=== PATIENT | male | born 1930 | race Caucasian/White ===

== ENCOUNTER 2018-04-14 15:37 | Inpatient (IN) | payer MEDICARE, OTHER ==
[~2018-04-14] VITALS: Ht 177.8 cm; Wt 72.6 kg
--- NOTE | ~2018-04-14 | PN ---
PATIENT:NGOZI COMBS MEDICAL RECORD: [id number] LOCATION:[facility] ADMISSION DATE: 04/14/18 PROGRESS NOTE DATE OF SERVICE: 04/27/2018 SUBJECTIVE: The patient's case was discussed with staff. He has no new complaint. OBJECTIVE: The patient is in good behavioral control with limited insight about his condition. He tolerates his medicines well. ASSESSMENT: No change in diagnoses. PLAN: Current medicines have been reviewed and will be maintained. He is going to be transitioned out of the hospital tomorrow. His daughter and son-in-law are going to take him to [place] and arrangements have been made for him to go into a jail close to the daughter. TRANSINT:[id number] Voice Confirmation ID: [id number] DOCUMENT ID: [id number] JAYSHREE SANTANA MD at 1233 CC: [id number] DICTATION DATE: 04/27/18 1240 ANESTHESIOLOGIST AND CRITICAL CARE: 04/27/18 1314 ADM IN [id number] [place] [address]
--- NOTE | ~2018-04-14 | PN ---
PATIENT:NGOZI COMBS MEDICAL RECORD: [id number] LOCATION:[facility] ADMISSION DATE: 04/14/18 PROGRESS NOTE DATE OF SERVICE: 04/17/2018 SUBJECTIVE: The patient's case was discussed with staff. He has no new complaint. OBJECTIVE: The patient denies intent to harm himself or others. He is quite confused. He is not eating very adequately. ASSESSMENT: No change in diagnoses. PLAN: The patient will be placed on Megace to assist with appetite stimulation. His long-term prognosis is guarded. Supportive and educational interventions were made. It is my understanding that his daughter is wanting him to come live near her in [place]. TRANSINT:[id number] Voice Confirmation ID: [id number] DOCUMENT ID: [id number] JAYSHREE SANTANA MD at 1142 CC: [id number] DICTATION DATE: 04/17/18 1155 TRUCKMAN: 04/17/18 1207 ADM IN [id number] [place] [address]
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
--- NOTE | ~2018-04-14 | PN ---
PATIENT:NGOZI COMBS MEDICAL RECORD: [id number] LOCATION:[facility]112 ADMISSION DATE: 04/14/18 PROGRESS NOTE DATE OF SERVICE: 04/26/2018 SUBJECTIVE: The patient's case was discussed with staff. He has no new complaint. OBJECTIVE: The patient is in good behavioral control with limited insight about his condition. He does tolerate his medicines well. ASSESSMENT: No change in diagnoses. PLAN: I anticipate the patient can be transitioned out of the hospital soon. He is going to go with his daughter to [place] and we have been in contact with a long term there and they are going to accept him for care. TRANSINT:[id number] Voice Confirmation ID: [id number] DOCUMENT ID: [id number] JAYSHREE SANTANA MD at 1217 CC: [id number] DICTATION DATE: 04/26/18 1137 AUTO PARTS COUNTER PERSON: 04/26/18 1325 ADM IN [facility] [address] [place] [address]
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
--- NOTE | ~2018-04-14 | PN ---
PATIENT:NGOZI COMBS MEDICAL RECORD: [id number] LOCATION:[facility] Irizarry112 ADMISSION DATE: 04/14/18 PROGRESS NOTE DATE OF SERVICE: 04/25/2018 SUBJECTIVE: The patient's case was discussed with staff. He has no new complaint. OBJECTIVE: The patient slept well last night. He is also eating reasonably well. He is not completely oriented and he has been told he is going to go live with his daughter in [place] and he is fine with this. ASSESSMENT: No change in diagnoses. PLAN: The patient will be given Namenda at a slightly higher dose. His long-term prognosis is guarded. I anticipate he can be transitioned out of the hospital soon. TRANSINT:[id number] Voice Confirmation ID: [id number] DOCUMENT ID: [id number] JAYSHREE SANTANA MD at 0858 CC: [id number] DICTATION DATE: 04/25/18 1135 PTA: 04/25/18 1233 ADM IN [place] [id number] [place] [address]
--- NOTE | ~2018-04-14 | PN ---
PATIENT:NGOZI COMBS MEDICAL RECORD: [id number] LOCATION:[facility] Irizarry112 ADMISSION DATE: 04/14/18 PROGRESS NOTE DATE OF SERVICE: 04/21/2018 SUBJECTIVE: The patient's case was discussed with staff. He has no new complaint. OBJECTIVE: The patient denies intent to harm himself or others. He is clearly quite confused. He is oriented to person. He is confused about the time and circumstances, and he does know the state he is in, but does not understand that he is in [place] or in the hospital. ASSESSMENT: No change in diagnoses. This patient clearly requires 62-vwpl-x-day supervision. He will be returning to [place] with his daughter when we are ready to discharge him. His prognosis is poor. TRANSINT:[id number] Voice Confirmation ID: [id number] DOCUMENT ID: [id number] JAYSHREE SANTANA MD at 0924 CC: [id number] DICTATION DATE: 04/21/18 1106 RED HAT LINUX ADMINISTRATOR: 04/21/18 1155 ADM IN [id number] [place] [address]
--- NOTE | ~2018-04-14 | PN ---
PATIENT:NGOZI COMBS MEDICAL RECORD: [id number] LOCATION:[facility] I[facility]arry112 ADMISSION DATE: 04/14/18 PROGRESS NOTE DATE OF SERVICE: 04/18/2018 SUBJECTIVE: The patient's case was discussed with staff. He has no new complaint. OBJECTIVE: The patient is severely impaired cognitively. He has been started on Megace to address this. He has not been behaviorally out of control. His symptoms are primarily related to an advanced dementia. He has been started on Namenda for this condition. ASSESSMENT: No change in diagnoses. PLAN: Current medicines have been reviewed and will be maintained. His long-term prognosis is guarded. TRANSINT:[id number] Voice Confirmation ID: [id number] DOCUMENT ID: [id number] JAYSHREE SANTANA MD at 1018 CC: [id number] DICTATION DATE: 04/18/18 1240 BUSINESS SEGMENT MANAGER: 04/18/18 1415 ADM IN [address] [place] [address]
--- NOTE | ~2018-04-14 | PN ---
PATIENT:NGOZI COMBS MEDICAL RECORD: [id number] LOCATION:[facility] I[facility]ry112 ADMISSION DATE: 04/14/18 PROGRESS NOTE DATE OF SERVICE: 04/16/2018 SUBJECTIVE: The patient's case was discussed with staff. He has no new complaint. OBJECTIVE: The patient is severely impaired cognitively. He is only oriented to person and place. He was agitated last night, required p.r.n. medication. ASSESSMENT: No change in diagnoses. PLAN: The patient will be started on Namenda at a dose of 2.5 mg twice daily. He will be monitored for clinical changes associated with its use. His long-term prognosis is guarded. TRANSINT:[id number] Voice Confirmation ID: [id number] DOCUMENT ID: [id number] JAYSHREE SANTANA MD at 1147 CC: [id number] DICTATION DATE: 04/16/18 1615 AGENT TICKETING GATE: 04/17/18 0029 ADM IN [id number] [place] [address]
--- NOTE | ~2018-04-14 | PN ---
PATIENT:NGOZI COMBS MEDICAL RECORD: [id number] LOCATION:[facility] Irizarry112 ADMISSION DATE: 04/14/18 PROGRESS NOTE DATE OF SERVICE: 04/24/2018 SUBJECTIVE: The patient's case was discussed with staff. He has no new complaint. OBJECTIVE: The patient denies intent to harm himself or others. He is in good behavioral control, but his appetite is poor. ASSESSMENT: No change in diagnoses. PLAN: Current medicines have been reviewed and will be maintained. His long-term prognosis is guarded. I anticipate that if this level of improvement continues, he can reasonably be transitioned out of the hospital in a few days. TRANSINT:[id number] Voice Confirmation ID: [id number] DOCUMENT ID: [id number] JAYSHREE SANTANA MD at 1128 CC: [id number] DICTATION DATE: 04/24/18 1518 ACCELERATOR OPERATOR: 04/24/18 1646 ADM IN [address] [id number] [place] [address]
--- NOTE | ~2018-04-14 | PN ---
PATIENT:NGOZI COMBS MEDICAL RECORD: [id number] LOCATION:[facility] Irizarry112 ADMISSION DATE: 04/14/18 PROGRESS NOTE DATE OF SERVICE: 04/20/2018 SUBJECTIVE: The patient's case was discussed with staff. He has no new complaint. OBJECTIVE: The patient is severely impaired cognitively. He has very limited insight about his situation and asks the same questions repeatedly. He does have a normal TSH and I am satisfied with the dose of Synthroid that he is taking. He is also receiving Megace to stimulate his appetite and indeed the appetite was a little better yesterday. ASSESSMENT: No change in diagnoses. PLAN: The patient has been started on Namenda at a dose of 2.5 mg twice daily. I am going to go ahead and increase that medication to 5 mg twice daily. His long-term prognosis is guarded. TRANSINT:[id number] Voice Confirmation ID: [id number] DOCUMENT ID: [id number] JAYSHREE SANTANA MD at 1101 CC: [id number] DICTATION DATE: 04/20/18 1438 LEASING ASSISTANT: 04/20/18 2125 ADM IN [id number] [place] [address]
--- NOTE | ~2018-04-14 | PN ---
PATIENT:NGOZI COMBS MEDICAL RECORD: [id number] LOCATION:[facility] Irizarry112 ADMISSION DATE: 04/14/18 PROGRESS NOTE DATE OF SERVICE: 04/22/2018 SUBJECTIVE: The patient's case was discussed with staff. He has no new complaint. OBJECTIVE: The patient denies intent to harm himself or others. He is quite confused today. He thinks he is in a hotel and has lost his wallet. When trying to explain that is not the case, he becomes frustrated and angry. ASSESSMENT: No change in diagnoses. PLAN: Current medicines have been reviewed and will be maintained. Long-term prognosis is guarded. TRANSINT:[id number] Voice Confirmation ID: [id number] DOCUMENT ID: [id number] JAYSHREE SANTANA MD at 1555 CC: [id number] DICTATION DATE: 04/22/18 0951 LIVESTOCK NUTRITION TERRITORY MANAGER: 04/22/18 1045 ADM IN [address] [place] [address]
--- NOTE | ~2018-04-14 | PN ---
PATIENT:NGOZI COMBS MEDICAL RECORD: [id number] LOCATION:[facility]ar[facility]112 ADMISSION DATE: 04/14/18 PROGRESS NOTE DATE OF SERVICE: 04/28/2018 SUBJECTIVE: The patient's case was discussed with staff. He has no new complaint. OBJECTIVE: The patient is confused, but not agitated. His daughter is going to drive him to [place] today. He has no suicidal thoughts. He is not aggressive, and his daughter has been given a few tablets of Ativan to assist with the transport. ASSESSMENT: No change in diagnoses. PLAN: The patient will have followup in [place]. Arrangements have been made for him to present to and a retirement there and they are going to try and get him there as quickly as they think it is practical for them to do so. TRANSINT:[id number] Voice Confirmation ID: [id number] DOCUMENT ID: [id number] JAYSHREE SANTANA MD at 1130 CC: [id number] DICTATION DATE: 04/28/18 1242 CENTRIFUGAL CASTING MACHINE OPERATOR: 04/28/18 1721 DIS IN 04/28/18 [facility] [address] [place] [address]
[2018-04-14] MEDS ORDERED: MECLIZINE HCL25 MG (16:13)
[2018-04-14] MEDS ORDERED: LIPITOR20 MG PO (16:13)
[2018-04-14] MEDS ORDERED: FLOMAX0.4 MG PO (16:13)
[2018-04-14] MEDS ORDERED: PROTONIX40 MG PO (16:13)
[2018-04-14] MEDS ORDERED: SOLARAZE100 GM (16:13)
[2018-04-14] MEDS ORDERED: SYNTHROID125 MCG (16:14)
[2018-04-14 16:49] LABS: APPEARANCE CLEAR (CLEAR); BILIRUBIN NEGATIVE (NEGATIVE); COLOR YELLOW (YELLOW); GLUCOSE NEGATIVE (NEGATIVE); KETONE NEGATIVE (NEGATIVE); NITRITE NEGATIVE (NEGATIVE); PROTEIN NEGATIVE (NEGATIVE); UROBILINOGEN NORMAL (NORMAL)
[2018-04-14 17:04] LABS: BASOPHILS 0.4 % (0-2); EOSINOPHILS 2.8 % (0-7); HEMATOCRIT 42.1 % (42.0-54.0); HEMOGLOBIN 13.8 g/dL (13.5-17.5); IMMATURE GRANULOCYTES 0.4 % (0-5); LYMPHOCYTES 30.4 % (15-50); MCH 33.3 pg (26.0-34.0); MCHC 32.8 g/dL (31.0-37.0); MCV 101.7 fL (80.0-100.0); MEAN PLATELET VOLUME 10.6 fL (7.4-10.4); MONOCYTES 11.6 % (2-11); NEUTROPHILS 54.4 % (40-80); PLATELET COUNT 240 10x3/uL (130-400); RBC 4.14 10x6/uL (4.20-6.10); RDW 14.3 % (11.5-14.5); WBC 7.1 10x3/uL (4.8-10.8)
[2018-04-14 17:18] LABS: ALBUMIN 3.9 g/dL (3.4-5.0); ANION GAP 15.2 mmol/L (8-16); BILIRUBIN - TOTAL 1.22 mg/dL (0.2-1.3); CALCIUM 8.6 mg/dL (8.5-10.1); CARBON DIOXIDE 23.8 mmol/L (21.0-32.0); CREATININE - SERUM 1.1 mg/dL (0.6-1.3); PROTEIN - SERUM 7.8 g/dL (6.4-8.2)
[2018-04-14 17:27] LABS: THYROID STIMULATING HORMONE 2.82 uIU/mL (0.36-3.74)
[2018-04-14 18:17] LABS: UDS - AMPHET NEGATIVE QUAL (NEGATIVE); UDS - BARB NEGATIVE QUAL (NEGATIVE); UDS - BENZO NEGATIVE QUAL (NEGATIVE); UDS - COCAINE NEGATIVE QUAL (NEGATIVE); UDS - OPIATE NEGATIVE QUAL (NEGATIVE); UDS - PCP NEGATIVE QUAL (NEGATIVE); UDS - THC NEGATIVE QUAL (NEGATIVE)
[2018-04-14 21:12] VITALS: BP 124/80; BMI 23.0
[2018-04-15] MEDS ORDERED: ACETAMINOPHEN325 MG PO (02:20)
[2018-04-15 07:00] VITALS: BP 106/67
[2018-04-15 07:12] LABS: BASOPHILS 0.5 % (0-2); EOSINOPHILS 3.3 % (0-7); HEMATOCRIT 44.6 % (42.0-54.0); HEMOGLOBIN 14.8 g/dL (13.5-17.5); IMMATURE GRANULOCYTES 0.4 % (0-5); LYMPHOCYTES 34.6 % (15-50); MCH 33.8 pg (26.0-34.0); MCHC 33.2 g/dL (31.0-37.0); MCV 101.8 fL (80.0-100.0); MEAN PLATELET VOLUME 10.4 fL (7.4-10.4); MONOCYTES 12.8 % (2-11); NEUTROPHILS 48.4 % (40-80); PLATELET COUNT 278 10x3/uL (130-400); RBC 4.38 10x6/uL (4.20-6.10); RDW 14.3 % (11.5-14.5); WBC 8.2 10x3/uL (4.8-10.8)
[2018-04-15 07:36] LABS: ALBUMIN 4.1 g/dL (3.4-5.0); ALKALINE PHOSPHATASE 69 U/L (46-116); ALT (SGPT) 22 U/L (10-68); BILIRUBIN - TOTAL 1.56 mg/dL (0.2-1.3); CALC OSMOLALITY 281 mosm/kg (275-300); CARBON DIOXIDE 26.4 mmol/L (21.0-32.0); CHLORIDE - SERUM 105 mmol/L (98-107); CHOL - HDL RATIO 3.5 ratio (2.3-4.9); CHOLESTEROL, TOTAL 159 mg/dL (0-200); GLUCOSE 93 mg/dL (74-106); HDL CHOLESTEROL 45 mg/dL (32-96); LDL CHOLESTEROL 92 mg/dL (0-100); POTASSIUM - SERUM 4.4 mmol/L (3.5-5.1); PROTEIN - SERUM 7.9 g/dL (6.4-8.2); SODIUM 141 mmol/L (136-145); THYROID STIMULATING HORMONE 3.57 uIU/mL (0.36-3.74); TRIGLYCERIDE 110 mg/dL (30-200); UREA NITROGEN 15 mg/dL (7-18); eGFR NON AFRICAN AMERICAN 75 mL/min (90-120)
[2018-04-15] MEDS ORDERED: TRUSOPT 2 % OPT10 ML EACH EYE (12:40)
[2018-04-15] MEDS ORDERED: MULTI-DAY VITAM1 TAB PO (12:41)
[2018-04-15] MEDS ORDERED: COLACE100 MG PO (12:42)
[2018-04-15 20:31] VITALS: BP 103/72
[2018-04-16 07:00] VITALS: BP 104/73
[2018-04-16 08:14] VITALS: BMI 23.0
[2018-04-16 10:06] VITALS: Ht 177.8 cm; Wt 72.6 kg
[2018-04-16 20:20] VITALS: BP 135/62
[2018-04-17 05:14] LABS: VITAMIN D 25 HYDROXY 21.8 ng/mL (30.0-100.0)
[2018-04-17 07:00] VITALS: BP 98/68
[2018-04-17 07:30] LABS: RAPID PLASMA REAGIN Non Reactive (Non Reactive)
[2018-04-17 08:20] LABS: FOLATE (FOLIC ACID) - SERUM 19.7 ng/mL (>3.0)
[2018-04-17 20:00] VITALS: BP 99/60
[2018-04-18 09:27] VITALS: BP 139/51
[2018-04-18 19:55] VITALS: BP 110/60
[2018-04-19 09:21] VITALS: BP 153/71
[2018-04-19 09:28] VITALS: BP 109/66
[2018-04-19 19:25] VITALS: BP 133/88
[2018-04-20 10:18] VITALS: BP 132/70
[2018-04-20 20:24] VITALS: BP 119/70
[2018-04-21 08:00] VITALS: BP 112/77
[2018-04-21 19:39] VITALS: BP 149/80
[2018-04-22 07:00] VITALS: BP 110/69
[2018-04-22 20:41] VITALS: BP 122/76
[2018-04-23 08:00] VITALS: BP 128/74
[2018-04-23 19:54] VITALS: BP 123/74
[2018-04-24 08:00] VITALS: BP 123/84
[2018-04-24 20:04] VITALS: BP 173/94
[2018-04-25 08:00] VITALS: BP 119/74
[2018-04-25 19:36] VITALS: BP 112/61
[2018-04-26 09:50] VITALS: BP 95/67
[2018-04-26 20:00] VITALS: BP 98/63
[2018-04-27 09:43] VITALS: BP 128/79
[2018-04-27 10:02] VITALS: BP 128/79
[2018-04-27 11:16] VITALS: BP 128/79
[2018-04-27] MEDS ORDERED: GEODON20 MG PO (12:42)
[2018-04-27] MEDS ORDERED: ATIVAN0.5 MG PO (12:42)
[2018-04-27] MEDS ORDERED: NAMENDA5 MG PO (12:42)
[2018-04-27] MEDS ORDERED: MEGACE40 MG PO (12:43)
[2018-04-27 20:08] VITALS: BP 111/70
[2018-04-28 08:32] VITALS: BP 106/59
== END 2018-04-28 14:05 | disposition home or self-care (01) | DRG 57 ==
LOC: D.ER 15:37 → D.PSYCH 18:58
PROVIDERS: Family Medicine; Psychiatry & Neurology Psychiatry
DX: G30.1 Alzheimer's disease with late onset (principal); F02.81 Dementia in other diseases classified elsewhere, unspecified severity, with behavioral disturbance; E78.5 Hyperlipidemia, unspecified; E03.9 Hypothyroidism, unspecified; N40.0 Benign prostatic hyperplasia without lower urinary tract symptoms; K21.9 Gastro-esophageal reflux disease without esophagitis; E55.9 Vitamin D deficiency, unspecified